=== PATIENT | female | born 1970 | race Caucasian/White ===

== ENCOUNTER 2024-05-08 06:43 | Emergency (ER) | payer OTHER ==
[~2024-05-08] VITALS: Ht 177.8 cm; Wt 96.0 kg
[2024-05-08 06:54] VITALS: TEMP 36.6; O2SAT 98
[2024-05-08 08:02] LABS: CLARITY URINE CLOUDY (CLEAR); COLOR URINE ORANGE (YELLOW); GLUCOSE URINE NEGATIVE (NEGATIVE); KETONES URINE NEGATIVE (NEGATIVE); LEUKOCYTE ESTERASE URINE 3+ (NEGATIVE); NITRITE URINE NEGATIVE (NEGATIVE); OCCULT BLOOD URINE 3+ (NEGATIVE); PROTEIN URINE 3+ (NEGATIVE); SPECIFIC GRAVITY URINE 1.009 (1.005-1.030); UROBILINOGEN URINE 0.2 E.U./dL (0.2-1.0)
[2024-05-08 08:51] LABS: BACTERIA URINE 1+; RBC URINE 15-25 /hpf (0-2); SQUAMOUS EPITHELIAL CELL URINE 1+ /lpf (RARE/1+); WBC URINE TNTC /hpf (0-2)
[2024-05-08 08:52] LABS: YEAST URINE NONE SEEN
[2024-05-08] MEDS ORDERED: PHEN-815 MT (09:08)
[2024-05-08] MEDS ORDERED: CEPH500C2 MT (09:08)
[2024-05-08 09:41] VITALS: BP 130/62; PULSE 118; RESP 18
[2024-05-08] MEDS: TRAMADOL 50MG TABLET PO ONE (09:41)
[2024-05-08] MEDS: CEFTRIAXONE SODIUM 1G VIAL IM ONE (09:41)
== END 2024-05-08 09:44 | disposition home or self-care (01) ==
LOC: ER 06:43
DX: N39.0 Urinary tract infection, site not specified (principal); Z90.49 Acquired absence of other specified parts of digestive tract; Z90.710 Acquired absence of both cervix and uterus
CPT/HCPCS: 99283; 81003; 87086; 96372; J0696